=== PATIENT | female | born 1940 | race Caucasian/White ===

== ENCOUNTER → 2017-05-07 | Outpatient (CLI) | payer MEDICARE, MEDICAID ==
[~2017-05-07] MED LIST: AMLODIPINE BES10 MG PO; AMLODIPINE10 MG PO; ASPIRIN 81MG TA81 MG PO; BISOPROLOL FUMA1 TA4 PO; BISOPROLOL/HCTZ1 TA3 PO; CARVEDILOL 1212.5 MG PO; CARVEDILOL 25MG25 MG PO; LOSARTAN POTASS50 MG PO; METFORMIN HCL1000 MG PO; METFORMIN1000 MG PO; PRAVASTATIN 20M20 MG PO; SPIRONOLACTONE25 MG PO; WARFARIN SOD5 MG PO; WARFARIN SODIU2.5 MG PO; WARFARIN SODIU7.5 MG PO
[2017-05-07 16:29] LABS: HEMOGLOBIN 10.5 g/dL (12.2-16.2); LYMPH # 1.1 K/mm3 (0.7-4.5); LYMPH % 19.4 % (10-50.0)
[2017-05-07 17:48] LABS: BUN 59 mg/dL (7-18); GFR (ESTIMATED) 29 ML/MIN (59-)
[2017-05-09 08:46] LABS: Iron 48 ug/dL (27-139); Iron Saturation 15 % (15-55); UIBC 270 ug/dL (118-369)
== END ==
LOC: LAB 15:38
PROVIDERS: Internal Medicine
DX: D64.9 Anemia, unspecified (principal); I10 Essential (primary) hypertension; I48.0 Paroxysmal atrial fibrillation; E11.9 Type 2 diabetes mellitus without complications

== ENCOUNTER → 2017-07-16 | Outpatient (CLI) | payer MEDICARE, MEDICAID ==
--- NOTE | 2017-07-16 11:05 | RADIOLOGY REPORT PS360 ---
CT CHEST W/O CONTRAST HISTORY: Follow-up lung nodules LUNG NODULES ORDERING PHYSICIAN: Neil Valencia MD PATIENT AGE: 77 years TECHNIQUE: Helical acquisition obtained without contrast.. Axial, sagittal, and coronal reformatted images are generated and reviewed. COMPARISON: 05/03/2017, 11/21/2016 FINDINGS: There are few small mediastinal lymph nodes. Previously there was a 10 mm node within the AP window now measuring 6 mm. Calcified nodes present in the right hilum. There is mild right apical pleural thickening. Previously noted vascular congestion and thickening of the interlobular septa has improved. There is a 5 mm noncalcified nodule in the right apex not significantly changed. 3 mm noncalcified nodule present along the right major fissure unchanged. Calcified granuloma right middle lobe. 4 mm left upper lobe nodule laterally unchanged 3 mm left upper lobe nodule anteriorly. There is some mild bronchiectasis in the left lower lobe. No lobar consolidation or collapse is evident. There is minimal ectasia of the proximal descending thoracic aorta at 3 cm not significantly changed IMPRESSION: 1. Interval improvement in the congestive heart failure. 2. Stable bilateral pulmonary nodules. Previously there were fluffy appearing nodules in the right apex which are not apparent on today's exam. Those are likely inflammatory/infectious in nature. 3. Minimal left basilar bronchiectasis
--- NOTE | 2017-07-17 06:42 | RADIOLOGY REPORT PS360 ---
PROCEDURE: 2-D M-mode and color Doppler study INDICATIONS FOR THE TEST: Chest pain COPD Heart Murmur Tobacco Smoking Palpitations Fatigue Syncope Edema HypertensionXDiabetes MellitusX Rheumatic Fever SOBXDOE ObesityXHyperlipidemiaX Family History HD Additional History PATIENT INFORMATION HEIGHT: 70 WEIGHT:233 GENDER: Female B/P:151/87 2-D/M-MODE INTERPRETATION: 2-D MEASUREMENTS OBSERVED VALUES IN CMS Right Ventricular Dimension (RVDd) 2.6 Interventricular Septum (Thickness)(IVsd) .9 Left Ventricular Internal Dimensions(LVIDd) 5.4 Left Ventricular Posterior Wall (Thickness)(LVPWd) .9 Aortic Root 2.7 Aortic Cusp Separation 1.9 Left Atrial Dimensions (LAD) 3.9 2D 1. Left atrium is mildly enlarged, left ventricle is normal size, septum has sigmoid configuration, visually estimated ejection fraction 55% with no obvious regional wall motion abnormality. 2. The right atrium and right ventricle are normal size and contractility. 3. The aortic valve is minimally thickened and calcified, leaflet continue to display mobility. 4. The mitral valve has mitral annular calcification, there is no mitral stenosis. 5. The tricuspid valve is grossly normal. 6. The pulmonic valve is poorly visualized. 7. No significant pericardial effusion noted. DOPPLER INTERROGATION: Doppler interrogation of the aortic, mitral and tricuspid valve reveals presence of mild aortic, mitral and tricuspid regurgitation, tissue Doppler is indicated of raised left atrial pressure. Likely grade 2 diastolic dysfunction present. The tricuspid regurgitant jet velocity is insufficient for calculation of the right ventricular systolic pressure. CONCLUSION: 1. Mildly enlarged left atrium, normal left ventricular size, there has sigmoid configuration, visually estimated ejection fraction 55% with no obvious regional wall motion abnormality. Likely grade 2 diastolic dysfunction seen. Tissue Doppler is indicated of raised left atrial pressure. 2. Mild aortic, mitral and tricuspid regurgitation tricuspid and jet velocity insufficient for calculation of the right ventricular systolic pressure. 3. No significant pericardial effusion noted.
== END ==
LOC: RT 07:11
DX: R91.1 Solitary pulmonary nodule (principal); R06.02 Shortness of breath; I50.30 Unspecified diastolic (congestive) heart failure